=== PATIENT | female | born 1980 | race Caucasian/White ===

== ENCOUNTER 2020-09-03 11:30 | Emergency (ER) | payer OTHER ==
--- NOTE | 2020-09-03 12:39 | ER Document Report ---
ED Medical Screen (RME) - General Chief Complaint: Palpitations Stated Complaint: PALPITATIONS Time Seen by Provider: 09/03/20 12:37 Notes: 40-year-old female with chief complaint of palpitations. Sometimes palpitations last a few seconds, sometimes 30 minutes, mainly can be controlled by deep breathing. Denies passing out, chest pain, or current complaints. Denies recreational drugs, smoking, large amount of caffeine. Does report to be under stress. LMP missed. Physical Exam - Vital signs Vitals: Temp Pulse Resp BP Pulse Ox 98.8 F 91 16 150/83 H 98 09/03/20 11:46 09/03/20 11:46 09/03/20 11:46 09/03/20 11:46 09/03/20 11:46 - Cardiovascular Rhythm: Regular. No: Tachycardia Heart sounds: Normal auscultation, S1 appreciated, S2 appreciated Course - Re-evaluation Re-evalutation: 09/03/20 12:38 I have greeted and performed a rapid initial assessment of this patient. A comprehensive ED assessment and evaluation of the patient, analysis of test results and completion of the medical decision making process will be conducted by additional ED providers. - Vital Signs Vital signs: Temp Pulse Resp BP Pulse Ox 98.8 F 91 16 150/83 H 98 09/03/20 11:46 09/03/20 11:46 09/03/20 11:46 09/03/20 11:46 09/03/20 11:46
[2020-09-03 13:22] LABS: ABSOLUTE BASOPHILS # (AUTO) 0.1 10^3/uL (0.0-0.2); ABSOLUTE EOSINOPHILS # (AUTO) 0.1 10^3/uL (0.0-0.6); ABSOLUTE LYMPHOCYTES (AUTO) 2.5 10^3/uL (0.5-4.7); ABSOLUTE MONOCYTES (AUTO) 0.7 10^3/uL (0.1-1.4); ABSOLUTE NEUT (AUTO) 6.7 10^3/uL (1.7-8.2); BASOPHILS % (AUTO) 0.6 % (0-2); EOSINOPHILS % (AUTO) 1.1 % (0-6); HEMATOCRIT 41.9 % (36.0-47.0); HEMOGLOBIN 14.1 g/dL (12.0-15.5); LYMPHOCYTES % (AUTO) 24.6 % (13-45); MEAN CORPUSCULAR HEMOGLOBIN 27.1 pg (27.0-33.4); MEAN CORPUSCULAR HGB CONC 33.6 g/dL (32.0-36.0); MEAN CORPUSCULAR VOLUME 81 fl (80-97); MONOCYTES % (AUTO) 7.2 % (3-13); PLATELET COUNT 331 10^3/uL (150-450); RED BLOOD COUNT 5.19 10^6/uL (3.72-5.28); RED CELL DISTRIBUTION WIDTH 13.9 % (11.5-14.0); SEGMENTED NEUTROPHILS % (AUTO) 66.5 % (42-78); TOTAL CELLS COUNTED % (AUTO) 100 %; WHITE BLOOD COUNT 10.1 10^3/uL (4.0-10.5)
[2020-09-03 13:26] LABS: APPEARANCE,URINE SLIGHTLY-CLOUDY; BILIRUBIN,URINE NEGATIVE (NEGATIVE); COLOR,URINE YELLOW; GLUCOSE, URINE NEGATIVE (NEGATIVE); KETONES,URINE 80 mg/dL (NEGATIVE); LEUKOCYTE ESTERASE,URINE NEGATIVE (NEGATIVE); NITRITE,URINE NEGATIVE (NEGATIVE); PROTEIN,URINE 30 mg/dL (NEGATIVE); URINE SPECIFIC GRAVITY 1.028
[2020-09-03 13:49] LABS: ALBUMIN 5.2 g/dL (3.5-5.0); ALKALINE PHOSPHATASE 41 U/L (38-126); ANION GAP 11 (5-19); ASPARTATE AMINO TRANSFERASE 21 U/L (14-36); BILIRUBIN,DIRECT 0.1 mg/dL (0.0-0.4); BILIRUBIN,TOTAL 1.4 mg/dL (0.2-1.3); BLOOD UREA NITROGEN 15 mg/dL (7-20); CALCIUM 10.1 mg/dL (8.4-10.2); CARBON DIOXIDE 25 mmol/L (22-30); CHLORIDE 102 mmol/L (98-107); GLUCOSE 90 mg/dL (75-110); POTASSIUM 4.2 mmol/L (3.6-5.0); TOTAL PROTEIN 8.5 g/dL (6.3-8.2)
[2020-09-03 14:02] LABS: FREE T4 (FREE THYROXINE) 1.24 ng/dL (0.78-2.19)
[2020-09-03 14:16] LABS: THYROID STIMULATING HORMONE 0.77 uIU/mL (0.47-4.68)
--- NOTE | 2020-09-03 14:48 | EKG REPORT ---
SEVERITY:- NORMAL ECG - SINUS RHYTHM : Confirmed by: Claritza Decker 03-Sep-2020 14:47:30
[2020-09-03] MEDS ORDERED: RINGERS SOLUTION,LACTATED 1,000 ML IV ONE (15:50)
--- NOTE | 2020-09-03 15:53 | ER Document Report ---
ED General - General Chief Complaint: Palpitations Stated Complaint: PALPITATIONS Time Seen by Provider: 09/03/20 12:37 Primary Care Provider: [facility] [Provider Group] - Follow up in 3-5 days Notes: Patient is a 40-year-old female who comes to the emergency department for chief complaint of palpitations. She states the palpitations generally last a few seconds, sometimes almost 30 minutes, she usually can make the simply go away with deep breathing. She states these seem more frequent today and she became concerned. She admits to poor diet and poor hydration, states she has been very stressed and somewhat depressed recently and has been eating poorly as a result. She states she had vaginal spotting within the past 2 days and some intermittent lower abdominal cramping but she denies recent full period within the past month. She denies smoking, frequent alcohol, recreational drugs, or la rge amount of caffeine. She states she has been depressed but she denies suicidal ideations or plan. She denies any daily medications. - Related Data Home Medications: estephania Keith Past Medical History - General Information source: Patient - Social History Smoking Status: Former Smoker Chew tobacco use (# tins/day): No Frequency of alcohol use: Occasional Drug Abuse: None Lives with: Family Family History: Reviewed & Not Pertinent - Immunizations Immunizations up to date: Yes Hx Diphtheria, Pertussis, Tetanus Vaccination: Yes Review of Systems - Review of Systems Constitutional: See HPI EENT: No symptoms reported Cardiovascular: See HPI Respiratory: No symptoms reported Gastrointestinal: No symptoms reported Genitourinary: No symptoms reported Female Genitourinary: No symptoms reported Musculoskeletal: No symptoms reported Skin: No symptoms reported Hematologic/Lymphatic: No symptoms reported Neurological/Psychological: See HPI Physical Exam - Vital signs Vitals: Temp Pulse Resp BP Pulse Ox 98.8 F 91 16 150/83 H 98 09/03/20 11:46 09/03/20 11:46 09/03/20 11:46 09/03/20 11:46 09/03/20 11:46 - Notes Notes: GENERAL: Alert, interacts well. No acute distress. Patient appears tired but otherwise well-appearing HEAD: Normocephalic, atraumatic. EYES: Pupils equal, round, and reactive to light. Extraocular movements intact. ENT: Oral mucosa moist, tongue midline. Oropharynx unremarkable. Airway patent. NECK: Full range of motion. Supple. Trachea midline. No lymphadenopathy. LUNGS: Clear to auscultation bilaterally, no wheezes, rales, or rhonchi. No respiratory distress. Non-tender chest wall. HEART: Regular rate and rhythm. No murmur ABDOMEN: Soft, non-tender. Non-distended. EXTREMITIES: Moves all 4 extremities spontaneously. No edema, normal radial and dorsalis pedis pulses bilaterally. No cyanosis. BACK: no cervical, thoracic, lumbar midline tenderness. No saddle anesthesia, normal distal neurovascular exam. Moves all extremities in full range of motion. NEUROLOGICAL: Alert and oriented x3. Normal speech. Cranial nerves II through XII grossly intact. Strength 5/5 in all extremities. PSYCH: Eyes are red from crying but patient currently has unremarkable mood with normal affect Course - Re-evaluation Re-evalutation: Patient tired but otherwise well-appearing. No tachycardia or palpitations on my exam. EKG unremarkable. Thyroid panel unremarkable. CBC unremarkable, chemistry unremarkable, test is positive and hCG is slightly elevated. RhoGam negative, ultrasound without specific findings I did discuss this with patient. Most likely this is very early . Urine shows ketones and elevated specific gravity, patient was given lactated Ringer's. On reevaluation she is improved in appearance and has no complaints. Patient is happy about potential , discussed how this still needs to be trended because this is a very low hormone reading, she states she will follow-up with her primary care, also except LICENSED NURSING ASSISTANT referral, discussed return precautions in detail. Patient states understanding and agreement. Stable and well-appearing at time of discharge. - Vital Signs Vital signs: Temp Pulse Resp BP Pulse Ox 98.8 F 91 14 151/90 H 97 09/03/20 11:46 09/03/20 11:46 09/03/20 18:10 09/03/20 18:10 09/03/20 18:10 - Laboratory Results Result Diagrams: 09/03/20 12:45 09/03/20 12:45 Laboratory Results Interpreted: 09/03/20 09/03/20 09/03/20 12:45 12:45 12:45 Total Bilirubin 1.4 H Total Protein 8.5 H Albumin 5.2 H Serum HCG, Qual POSITIVE H Beta HCG, Quant Urine Protein 30 H Urine Ketones 80 H Urine Blood SMALL H Urine Urobilinogen 2.0 H 09/03/20 12:45 Total Bilirubin Total Protein Albumin Serum HCG, Qual Beta HCG, Quant 7.70 H Urine Protein Urine Ketones Urine Blood Urine Urobilinogen Critical Laboratory Results Reviewed: No Critical Results - Radiology Results Critical Radiology Results Reviewed: No Critical Results - EKG Interpretation by Me Additional EKG results interpreted by me: EKG sinus rhythm at a rate of 70, QTc 441, normal axis, no T wave inversions or ST segment changes in consecutive leads Discharge - Discharge Clinical Impression: Palpitations Condition: Stable Disposition: HOME, SELF-CARE Additional Instructions: Your work-up shows dehydration with ketones. You need to improve your diet and improve your hydration, this should significantly improve your palpitations. Your test is positive. The number is still very low, but this can be trended. I recommend that you follow-up in 3 days or more with primary care or LICENSED NURSING ASSISTANT to have your beta hCG quantitative rechecked to trend the . Your blood type is O+. Return if you worsen including severe abdominal pain, heavy bleeding, passing out, or any other concerning or worsening symptoms. Referrals: [facility] [Provider Group] - Follow up in 3-5 days
--- NOTE | 2020-09-03 16:38 | RADIOLOGY REPORT (SQ) ---
EXAM DESCRIPTION: U/S OB TRANSVAG W/DOPPLER IMAGES COMPLETED DATE/TIME: 09/03/2020 4:28 pm REASON FOR STUDY: +HCG, vaginal bleeding COMPARISON: None. TECHNIQUE: Transvaginal static and realtime grayscale images acquired of the pelvis. Additional jewel cted spectral and color Doppler images recorded. All images stored on PACs. CLINICAL AGE: 5 weeks 1 day. BHCG: Pending. LIMITATIONS: None. FINDINGS: UTERUS: No visualized intrauterine . Possible arcuate uterus. Multiple uterine fibroids. The largest measures 1.3 x 1.5 x 1.1 cm. RIGHT ADNEXA: Normal ovary with normal vascular flow. There is a 1.4 x 1.4 x 1.3 cm cyst. No adnexal free fluid. No adnexal masses. LEFT ADNEXA: Normal ovary with normal vascular flow. No adnexal free fluid. No adnexal masses. FREE FLUID: None. OTHER: No other significant finding. IMPRESSION: NO VISUALIZED INTRA- OR EXTRAUTERINE . bHCG LEVEL TOO LOW TO EXPECT VISUALIZATION OF . ECTOPIC CANNOT BE EXCLUDED. FOLLOW-UP ULTRASOUND AND SERIAL BHCG LEVELS STRONGLY RECOMMENDED TO ACCURATELY ASSESS STATU S. SMALL UTERINE FIBROIDS. POSSIBLE ARCUATE UTERUS. TECHNICAL DOCUMENTATION: JOB ID: [id number] 2010 [employer]- All Rights Reserved Reading location - IP/workstation name: [email or web address]
[2020-09-03 18:18] VITALS: BP 151/90
== END 2020-09-03 18:18 | disposition home or self-care (01) ==
LOC: ER 11:30
DX: R00.2 Palpitations (principal); R10.30 Lower abdominal pain, unspecified; Z87.891 Personal history of nicotine dependence
CPT/HCPCS: 93005; 99285; 96360; 96361; 86900; 86901; 36415; 84439; 84702; 83735; 84443; 84703; 85025; 80053; 81001; 76817; 93976; 93010; J7120

== ENCOUNTER 2020-09-11 17:15 | Emergency (ER) | payer OTHER ==
--- NOTE | 2020-09-11 18:22 | ER Document Report ---
ED Medical Screen (RME) - General Chief Complaint: Vaginal Bleeding Stated Complaint: VAGINAL BLEEDING/6 WKS PREG - HPI Notes: 09/11/20 18:20 Rapid Medical Exam HPI: This is a 40-year-old female complaining of some vaginal spotting yesterday that has since resolved. Patient was seen in the ED last week for palpitations and was noted to have hCG level of 7. Ultrasound did not visualize IUP or ectopic. Patient says she had a repeat hCG level on which was 28. She denies any abdominal or flank pain. No fevers chills nausea vomiting or. Last. Was July 28. Physical Exam: GENERAL: Well-appearing, well-nourished and in no acute distress. HEAD: Atraumatic, normocephalic. ENT: Moist mucous membranes. RESP: Respirations even and unlabored CV- Regular rate. NEURO: No focal neurological deficits. Moves all extremities spontaneously and on command. My involvement in this patients care was limited to a rapid initial assessment. A comprehensive ED assessment and evaluation of the patient, analysis of test results, treatment, and completion of the medical decision making process will be performed by other ER providers. - Related Data Allergies/Adverse Reactions: Penicillins Allergy (Verified 09/11/20 18:10) Past Medical History - Social History Chew tobacco use (# tins/day): No Frequency of alcohol use: Occasional Drug Abuse: None - Immunizations Immunizations up to date: Yes Hx Diphtheria, Pertussis, Tetanus Vaccination: Yes Physical Exam - Vital signs Vitals: Temp Pulse Resp BP Pulse Ox 98.2 F 88 14 161/102 H 100 09/11/20 17:21 09/11/20 17:21 09/11/20 17:21 09/11/20 17:21 09/11/20 17:21 Course - Vital Signs Vital signs: Temp Pulse Resp BP Pulse Ox 98.2 F 88 14 161/102 H 100 09/11/20 17:21 09/11/20 17:21 09/11/20 17:21 09/11/20 17:21 09/11/20 17:21
--- NOTE | 2020-09-11 19:31 | RADIOLOGY REPORT (SQ) ---
EXAM DESCRIPTION: U/S OB TRANSVAG W/DOPPLER IMAGES COMPLETED DATE/TIME: 09/11/2020 7:11 pm REASON FOR STUDY: hcg 28 on 09/07. vaginal spotting COMPARISON: 09/03/2020 TECHNIQUE: Transvaginal static and realtime grayscale images acquired of the pelvis. Additional jewel cted spectral and color Doppler images recorded. All images stored on PACs. bHCG: Pending. CLINICAL DATES: LMP 07/28/2020 6 weeks 3 days LIMITATIONS: None. FINDINGS: No intrauterine gestational sac is seen. There is of course no pole. No hear t motion. No yolk sac. UTERUS: There are 2 small hypoechoic areas within the myometrium. The larger measures [address] diameter. CERVICAL LENGTH: 2.7 cm. Closed. RIGHT ADNEXA: Normal ovary with normal vascular flow. 4.2 x 2.7 x 2.5 cm. No adnexal free fluid. No adnexal masses. LEFT ADNEXA: Normal ovary with normal vascular flow. 2.5 x 2.5 x 1.6 cm. No adnexal free fluid. No adnexal masses. FREE FLUID: None. OTHER: No other significant finding. IMPRESSION: There is no intrauterine gestation at this time. There may be 2 small uterine fibroids. TECHNICAL DOCUMENTATION: JOB ID: [id number] [employer]- All Rights Reserved rev-01/15 Reading location - IP/workstation name: [email or web address]
--- NOTE | 2020-09-11 20:51 | ER Document Report ---
HPI - HPI Time Seen by Provider: 09/11/20 19:57 Pain Level: Denies Context: Patient states that she had had a positive test last week and was seen on the fourth and had a quantitative hCG level of 7 and when she was seen on the seventh her hCG test results were 28. Patient states that she has had some vaginal bleeding for the past 4 days. Patient states that she had previously had difficulty conceiving and is wanting to find out if she is indeed or miscarrying at this time. Associated Symptoms: Other - Vaginal bleeding. denies: Fever Exacerbated by: Denies Relieved by: Denies Similar symptoms previously: No Recently seen / treated by doctor: Yes - ROS ROS below otherwise negative: Yes Systems Reviewed and Negative: Yes All other systems reviewed and negative - CONSTITUTIONAL Constitutional: DENIES: Fever, Chills - GASTROINTESTINAL Gastrointestinal: DENIES: Abdominal Pain, Nausea, Patient vomiting - URINARY Urinary: DENIES: Dysuria - REPRODUCTIVE LMP: 08-27-20 Reproductive: REPORTS: :, Abnormal bleeding / discharge - scant. DENIES: Postmenopausal - DERM Skin Color: Normal Skin Problems: None Past Medical History - General Information source: Patient Last Menstrual Period: jul 28 - Social History Smoking Status: Former Smoker Chew tobacco use (# tins/day): No Frequency of alcohol use: Occasional Drug Abuse: None Occupation: Real estate Lives with: Spouse/Significant other Family History: Reviewed & Not Pertinent - Medical History Medical History: Negative Past Surgical History: Reports: Hx Tonsillectomy - Immunizations Immunizations up to date: Yes Hx Diphtheria, Pertussis, Tetanus Vaccination: Yes Vertical Provider Document - CONSTITUTIONAL Agree With Documented VS: Yes Exam Limitations: No Limitations General Appearance: WD/WN, No Apparent Distress - HEENT HEENT: Atraumatic, Normocephalic - NECK Neck: Normal Inspection - RESPIRATORY Respiratory: Breath Sounds Normal, No Respiratory Distress - CARDIOVASCULAR Cardiovascular: Regular Rate, Regular Rhythm - GI/ABDOMEN Gastrointestinal: Abdomen Soft, Abdomen Non-Tender - BACK Back: Normal Inspection. negative: CVA Tenderness-Right, CVA Tenderness-Left - MUSCULOSKELETAL/EXTREMETIES Musculoskeletal/Extremeties: MAEW - NEURO Level of Consciousness: Awake, Alert, Appropriate Motor/Sensory: No Motor Deficit - DERM Integumentary: Warm, Dry Course - Re-evaluation Re-evalutation: 09/11/20 Discussed patient's diagnostic test results with her. Patient advised that technically she does have a positive test at this time. Patient encouraged to follow-up with a DEPARTMENT DIRECTOR for further evaluation of her status. Good return precautions discussed with patient at this time. Patient given a copy of her labs to help facilitate her follow-up. - Vital Signs Vital signs: Temp Pulse Resp BP Pulse Ox 98.2 F 88 14 161/102 H 100 09/11/20 17:21 09/11/20 17:21 09/11/20 17:21 09/11/20 17:21 09/11/20 17:21 - Laboratory Results Laboratory Results Interpreted: 09/11/20 18:38 Beta HCG, Quant 41.99 H 09/12/20 07:41 Labs- All tests 24 hr 09/11/20 18:38 Beta HCG, Quant 41.99 H Total Beta HCG POSITIVE Critical Laboratory Results Reviewed: No Critical Results - Radiology Results Critical Radiology Results Reviewed: No Critical Results Discharge - Discharge Clinical Impression: Vagina bleeding, test positive Condition: Stable Disposition: HOME, SELF-CARE Additional Instructions: Return immediately for any new or worsening symptoms Followup with your primary care provider, call tomorrow to make a followup appointment Follow-up with OB, call tomorrow for an appointment Referrals: [facility] [Provider Group] - Follow up as needed
[2020-09-11 21:12] VITALS: BP 148/92
== END 2020-09-11 21:12 | disposition home or self-care (01) ==
LOC: ER 17:15
DX: O46.91 Antepartum hemorrhage, unspecified, first trimester (principal); Z87.891 Personal history of nicotine dependence; Z3A.01 Less than 8 weeks gestation of pregnancy
CPT/HCPCS: 36415; 76817; 84702; 93976; 99284

== ENCOUNTER 2020-09-20 11:49 | Emergency (ER) | payer OTHER ==
[2020-09-20 12:04] VITALS: BP 134/90
--- NOTE | 2020-09-20 12:16 | ER Document Report ---
ED Medical Screen (RME) - General Chief Complaint: OB Problem (<20wks) Stated Complaint: VAGINAL BLEEDING - HPI Notes: 09/20/20 12:14 Rapid Medical Exam HPI: 40-year-old female presents to the ER complaining of possible ectopic . Patient was recently diagnosed as with "nonviable ". This was diagnosed due to hCG levels not elevating as expected. Patient says last night she developed some mid lower abdominal pain. Has had mild vaginal bleeding for the past 2 weeks which is unchanged. Physical Exam: GENERAL: Well-appearing, well-nourished and in no acute distress. HEAD: Atraumatic, normocephalic. ENT: Moist mucous membranes. RESP: Respirations even and unlabored CV- Regular rate. NEURO: No focal neurological deficits. Moves all extremities spontaneously and on command. My involvement in this patients care was limited to a rapid initial assessment. A comprehensive ED assessment and evaluation of the patient, analysis of test results, treatment, and completion of the medical decision making process will be performed by other ER providers. - Related Data Allergies/Adverse Reactions: Penicillins Allergy (Verified 09/20/20 12:09) Home Medications: vitamin d. Past Medical History - Social History Chew tobacco use (# tins/day): No Frequency of alcohol use: None Drug Abuse: None Past Surgical History: Reports: Hx Tonsillectomy - Immunizations Immunizations up to date: Yes Hx Diphtheria, Pertussis, Tetanus Vaccination: Yes Physical Exam - Vital signs Vitals: Temp Pulse Resp BP Pulse Ox 98.5 F 85 15 134/90 H 100 09/20/20 12:02 09/20/20 12:02 09/20/20 12:02 09/20/20 12:02 09/20/20 12:02 Course - Vital Signs Vital signs: Temp Pulse Resp BP Pulse Ox 98.5 F 85 15 134/90 H 100 09/20/20 12:10 09/20/20 12:02 09/20/20 12:02 09/20/20 12:02 09/20/20 12:02
[2020-09-20 12:52] LABS: ABSOLUTE EOSINOPHILS # (AUTO) 0.2 10^3/uL (0.0-0.6); ABSOLUTE LYMPHOCYTES (AUTO) 2.1 10^3/uL (0.5-4.7); ABSOLUTE MONOCYTES (AUTO) 0.5 10^3/uL (0.1-1.4); ABSOLUTE NEUT (AUTO) 5.1 10^3/uL (1.7-8.2); BASOPHILS % (AUTO) 0.6 % (0-2); EOSINOPHILS % (AUTO) 2.2 % (0-6); HEMATOCRIT 38.6 % (36.0-47.0); LYMPHOCYTES % (AUTO) 26.3 % (13-45); MEAN CORPUSCULAR HEMOGLOBIN 27.2 pg (27.0-33.4); MEAN CORPUSCULAR HGB CONC 33.5 g/dL (32.0-36.0); MEAN CORPUSCULAR VOLUME 81 fl (80-97); MONOCYTES % (AUTO) 6.2 % (3-13); PLATELET COUNT 280 10^3/uL (150-450); RED BLOOD COUNT 4.77 10^6/uL (3.72-5.28); RED CELL DISTRIBUTION WIDTH 14.4 % (11.5-14.0); SEGMENTED NEUTROPHILS % (AUTO) 64.7 % (42-78); TOTAL CELLS COUNTED % (AUTO) 100 %; WHITE BLOOD COUNT 7.8 10^3/uL (4.0-10.5)
[2020-09-20 12:54] LABS: APPEARANCE,URINE CLEAR; BILIRUBIN,URINE NEGATIVE (NEGATIVE); COLOR,URINE YELLOW; GLUCOSE, URINE NEGATIVE (NEGATIVE); KETONES,URINE NEGATIVE (NEGATIVE); LEUKOCYTE ESTERASE,URINE NEGATIVE (NEGATIVE); NITRITE,URINE NEGATIVE (NEGATIVE); PROTEIN,URINE 30 mg/dL (NEGATIVE); URINE SPECIFIC GRAVITY 1.009; UROBILINOGEN,URINE NEGATIVE mg/dL (<2.0)
[2020-09-20 13:12] LABS: ALBUMIN 4.7 g/dL (3.5-5.0); ALKALINE PHOSPHATASE 44 U/L (38-126); ANION GAP 8 (5-19); ASPARTATE AMINO TRANSFERASE 21 U/L (14-36); BILIRUBIN,DIRECT 0.1 mg/dL (0.0-0.4); BILIRUBIN,TOTAL 0.6 mg/dL (0.2-1.3); BLOOD UREA NITROGEN 15 mg/dL (7-20); CALCIUM 9.7 mg/dL (8.4-10.2); CARBON DIOXIDE 29 mmol/L (22-30); CHLORIDE 102 mmol/L (98-107); GLUCOSE 98 mg/dL (75-110); POTASSIUM 4.2 mmol/L (3.6-5.0); TOTAL PROTEIN 7.4 g/dL (6.3-8.2)
--- NOTE | 2020-09-20 14:31 | RADIOLOGY REPORT (SQ) ---
EXAM DESCRIPTION: U/S OB TRANSVAG W/DOPPLER IMAGES COMPLETED DATE/TIME: 09/20/2020 2:09 pm REASON FOR STUDY: right sided pelvic pain, nonviable preg COMPARISON: 09/11/2020 TECHNIQUE: Transvaginal static and realtime grayscale images acquired of the pelvis. Additional jewel cted spectral and color Doppler images recorded. All images stored on PACs. CLINICAL AGE: 7 weeks, 5 days bHC.12 LIMITATIONS: None. FINDINGS: UTERUS: No visualized intrauterine . Incidental note is again made of 2 intramur al fibroids. RIGHT ADNEXA: Normal ovary with normal vascular flow. No adnexal free fluid. No adnexal masses. LEFT ADNEXA: Normal ovary with normal vascular flow. No adnexal free fluid. No adnexal masses. FREE FLUID: None. OTHER: No other significant finding. IMPRESSION: NO VISUALIZED INTRA- OR EXTRAUTERINE . bHCG LEVEL TOO LOW TO EXPECT VISUALIZATION OF . ECTOPIC CANNOT BE EXCLUDED. FOLLOW-UP ULTRASOUND AND SERIAL BHCG LEVELS STRONGLY RECOMMENDED TO ACCURATELY ASSESS STATU S. TECHNICAL DOCUMENTATION: JOB ID: [id number] [employer]- All Rights Reserved Reading location - IP/workstation name: [email or web address]
--- NOTE | 2020-09-20 18:52 | ER Document Report ---
Entered by AUGUST LONG SCRIBE 09/20/20 1538 Acting as scribe for:MIR BARTON MD ED GI/ - General Chief Complaint: Vaginal Bleeding Stated Complaint: VAGINAL BLEEDING Time Seen by Provider: 09/20/20 12:48 Information source: Patient Notes: 40-year-old female patient with vaginal bleeding and positive hCG. She was first seen here on 09/03/2020, had a beta-hCG of 7.70 with a normal pelvic ultrasound. She went to [place] to see the BOILERMAKER APPRENTICE doctors on 09/06/2020 and had a hormone level of 28. She returned here on 09/11/2020 with an hCG level of 41.99 and a negative ultrasound. She was seen again in [place] on 09/17/2020 with a hormone level of 57. She returns to the emergency room today and has not hCG level of 54.12 and a negative ultrasound. She reports that she has been bleeding for 2 weeks that it started out bright red bleeding then got dark, now is normal color blood and is like a menstrual period. She also reports last night she had severe pains in her right lower abdomen pelvic area. She states the pain is sharp and persistent. - Related Data Allergies/Adverse Reactions: Penicillins Allergy (Verified 09/20/20 12:09) Home Medications: vitamin d. Past Medical History - General Information source: Patient - Social History Smoking Status: Never Smoker Cigarette use (# per day): No Chew tobacco use (# tins/day): No Frequency of alcohol use: None Drug Abuse: None Family History: Reviewed & Not Pertinent Patient has homicidal ideation: No - Medical History Medical History: Negative Past Surgical History: Reports: Hx Tonsillectomy - Immunizations Immunizations up to date: Yes Hx Diphtheria, Pertussis, Tetanus Vaccination: Yes Review of Systems - Review of Systems Constitutional: No symptoms reported EENT: No symptoms reported Cardiovascular: No symptoms reported Respiratory: No symptoms reported Gastrointestinal: No symptoms reported Genitourinary: No symptoms reported Female Genitourinary: See HPI, - ?, Vaginal bleeding Musculoskeletal: No symptoms reported Skin: No symptoms reported Hematologic/Lymphatic: No symptoms reported Neurological/Psychological: No symptoms reported -: Yes All other systems reviewed and negative Physical Exam - Vital signs Vitals: Temp Pulse Resp BP Pulse Ox 98.5 F 85 15 134/90 H 100 09/20/20 12:02 09/20/20 12:02 09/20/20 12:02 09/20/20 12:02 09/20/20 12:02 - Notes Notes: PHYSICAL EXAMINATION: GENERAL: Well-appearing, well-nourished and in no acute distress. HEAD: Atraumatic, normocephalic. EYES: Pupils equal round and reactive to light, extraocular movements intact, sclera anicteric, conjunctiva are normal. ENT: nares patent, oropharynx clear without exudates. Moist mucous membranes. NECK: Normal range of motion, supple without lymphadenopathy LUNGS: Breath sounds clear to auscultation bilaterally and equal. No wheezes rales or rhonchi. HEART: Regular rate and rhythm without murmurs ABDOMEN: Soft, nontender, normoactive bowel sounds. No guarding, no rebound. No masses appreciated. There is no tenderness to palpate into the right lower quadrant pelvic region. EXTREMITIES: Normal range of motion, no pitting or edema. No cyanosis. NEUROLOGICAL: Cranial nerves grossly intact. Normal speech, normal gait. Normal sensory, motor, and reflex exams. PSYCH: Normal mood, normal affect. SKIN: Warm, Dry, normal turgor, no rashes or lesions noted. Course - Vital Signs Vital signs: Temp Pulse Resp BP Pulse Ox 98.5 F 85 15 134/90 H 100 09/20/20 12:10 09/20/20 12:02 09/20/20 12:02 09/20/20 12:02 09/20/20 12:02 - Laboratory Results Result Diagrams: 09/20/20 12:25 09/20/20 12:25 Laboratory Results Interpreted: 09/20/20 09/20/20 09/20/20 12:25 12:25 12:25 RDW 14.4 H Beta HCG, Quant 54.12 H Urine Protein 30 H Urine Blood LARGE H Critical Laboratory Results Reviewed: No Critical Results - Radiology Results Radiology Results Interpreted: 09/20/20 15:48 Transvaginal ultrasound does not show intrauterine or extrauterine or any other abnormality. Critical Radiology Results Reviewed: No Critical Results Discharge - Discharge Clinical Impression: Non-viable Condition: Stable Disposition: HOME, SELF-CARE Additional Instructions: Take the copies of your lab work and the CDs of your ultrasounds with you to your BOILERMAKER APPRENTICE appointment on Thursday. RETURN TO THE EMERGENCY ROOM IF ANY NEW OR WORSENING SYMPTOMS. I personally performed the services described in the documentation, reviewed and edited the documentation which was dictated to the scribe in my presence, and it accurately records my words and actions.
== END 2020-09-20 15:52 | disposition home or self-care (01) ==
LOC: ER 11:49
DX: O36.4XX0 Maternal care for intrauterine death, not applicable or unspecified (principal); R10.30 Lower abdominal pain, unspecified; Z3A.00 Weeks of gestation of pregnancy not specified; Z88.0 Allergy status to penicillin
CPT/HCPCS: 36415; 76817; 80053; 81001; 83690; 84702; 85025; 93976; 99284